=== PATIENT | male | born 1965 | race Caucasian/White ===

== ENCOUNTER 2025-02-11 10:53 | Outpatient (AMB) | payer OTHER, SELFPAY ==
--- NOTE | 2025-02-11 10:58 | MHC.PC.OV ---
Vital Signs 02/11/25 11:06 02/11/25 15:54 Height 5 ft 10.47 in Weight 212 lb 8 oz BMI 30.1 BP 149/67 H 132/76 Blood Pressure Location Rt brachial Position Sitting Respiration 16 Pulse 73 Pulse Source Pulse Oximeter Temp 97.2 F Temp Source Temporal Artery Scan Pulse Oximetry (%) 98 Oxygen Delivery Method Room Air Intake Visit Reasons: Establish Care Metal Burnisher Required: No Accompanied by: Self / Same As Patient Allergies No Known Allergies Allergy (Verified 02/11/25 15:55) Medication List - Last Reconciled 02/11/25 by Vianey Larson PA-C Bifidobacterium combo no.9 (Adult 50 Plus Probiotic Kimberley) cells PO docusate sodium (Colace) 100 mg PO BID 90 days fexofenadine-pseudoephedrine 60-120 mg ER (Yee-D 12 Hour) 1 tab PO Q12H PRN hydrocortisone 2.5% 1 appl topical BID-TID PRN peg 3350-electrolytes 236-22.74-6.74 -5.86 gram (Golytely) 240 mL PO Q10M polyethylene glycol 3350 (Miralax) 17 grams PO BID Tobacco use date assessed: 02/11/25 Dental Screening Dental Screen Date: 02/11/25 Did you have a dental visit in the last 12 months?: Yes Did you have a dental problem in the last 6 months where you did not have access to dental care?: No Was dental information given to patient?: Patient has dentist HPI Establish Care HPI Details The patient is a 60-year-old male presenting for an annual physical exam in addition with gastrointestinal symptoms and chronic condition management. The patient reports a history of chronic appendicitis diagnosed after a CAT scan last year, which led to an appendectomy on . Post-surgery, symptoms temporarily improved but returned by June, characterized by abdominal discomfort and constipation. The patient describes persistent gastrointestinal symptoms, including bloating, abdominal discomfort, and constipation since returning from a cruise three years ago. He experiences pressure on the right side, with symptoms exacerbated by certain foods, and reports straining during bowel movements. A colonoscopy performed last year was normal, except for internal hemorrhoids, and stool tests for parasites were negative. The patient has been advised to undergo further testing, including a SIBO test, but insurance issues have delayed additional imaging like a CAT scan. The patient also reports tinnitus and eczema, with a history of benign paroxysmal positional vertigo (BPPV) diagnosed after a dizzy spell. He experiences postnasal drip, leading to phlegm production, and has been managing these symptoms with bdkg-yav-gthqxkb treatments. Social History - The patient sees a chief learning officer for dietary management. - The patient returned from a cruise three years ago, which coincided with the onset of gastrointestinal symptoms. [facility] Medical History (Updated 02/11/25 @ 16:02 by Vianey Larson PA-C) Postnasal drip BPPV (benign paroxysmal positional vertigo) Eczema Tinnitus IBS (irritable bowel syndrome) Diffuse abdominal pain Annual physical exam Constipation Right sided abdominal pain History of appendicitis Surgical History History of appendectomy Family History Father Congestive heart failure Diabetes Mother History of kidney cancer Social History Housing: House Patient Tobacco Use Status: Never used Tobacco e-Cigarette/Vaping Use: Never Used service: No Current occupational status: employed Cognitive needs: No Hearing needs: No Vision needs: Yes (reading glasses) Questionnaire PHQ-9 Over the last 2 weeks, how often have you been bothered by any of the following problems? 1. Little interest or pleasure in doing things: not at all 2. Feeling down, depressed, or hopeless: not at all 3. Trouble falling or staying asleep, or sleeping too much: not at all 4. Feeling tired or having little energy: not at all 5. Poor appetite or overeating: not at all 6. Feeling bad about yourself - or that you are a failure or have let yourself or your family down: not at all 7. Trouble concentrating on things, such as reading the newspaper or watching television: not at all 8. Moving or speaking so slowly that other people could have noticed. Or the opposite - being so fidgety or restless that you have been moving around a lot more than usual: not at all 9. Thoughts that you would be better off or of hurting yourself in some way: not at all Total score: 0 Depression Screening Interpretation: Negative Depression Screening Done: Yes 45787 - PHQ-9 Billing: Yes Source: Developed by Drs. Chriss Woodard, Nitin Dsouza and colleagues, with an educational colten from [employer]. Thrive Questionnaire Date Thrive assessed: 02/11/25 I am a: Patient What is your living situation today?: I have a steady place to live Within the past 12 months, did the food you bought not last and you didn't have the money to get more?: Never true Within the past 12 months, did you worry whether your food would run out before you got money to buy more?: Never true Do you have trouble paying for medicines?: No Do you have trouble getting transportation to medical appointments?: No Do you have trouble paying your heating and electricity bill?: No Do you have trouble taking care of your child, family member or friend?: No Do you have trouble with day-to-day activities such as bathing, preparing meals, shopping, managing finances, etc.?: No Are you currently unemployed and looking for a job?: No Are you interested in more education?: No Please select the resources that you would like help with: None THRIVE Score: 0 AUDIT C Alcohol Use Questionnaire (AUDIT-C) 1. How often do you have a drink containing alcohol?: 2-3 times a week 2. How many drinks containing alcohol do you have on a typical day when you are drinking?: 1 or 2 Total Score: 3 Score Reviewed/Action Taken: No KATIUSKA-7 AMB Questionnaire KATIUSKA-7 Feeling nervous, anxious, or on edge: 0 = Not at all Not being able to stop or control worryin = Not at all Worrying too much about different things: 0 = Not at all Trouble relaxin = Not at all Being so restless that it is hard to sit still: 0 = Not at all Becoming easily annoyed or irritable: 0 = Not at all Feeling afraid as if something awful might happen: 0 = Not at all Total KATIUSKA-7 score (0-4 normal; 5-9 mild; 10-14 moderate; 15-21 severe): 0 Source: Developed by Yesy Hernández Kurt Kroenke and colleagues, with an educational colten from [employer]. KATIUSKA-7 Assessment Billing KATIUSKA-7 Assessment Tool: KATIUSKA-7 Assessment 08032 Review of Systems Const Details: - Gastrointestinal: Reports bloating, abdominal discomfort, constipation, and straining during bowel movements. Denies diarrhea. - Neurological: Reports tinnitus and dizziness. Denies headaches. - Dermatological: Reports eczema. - Respiratory: Reports postnasal drip and phlegm production. All systems reviewed & are unremarkable except as noted in HPI and below Physical exam (Primary Care) Vital Signs: Last Vital Signs Temp 97.2 F 02/11/25 11:06 Pulse 73 02/11/25 11:06 Resp 16 02/11/25 11:06 BP 149/67 H 02/11/25 11:06 Pulse Ox 98 02/11/25 11:06 Oxygen Delivery Method Room Air 02/11/25 11:06 Care Plan Goal for BP management: <140/90 at Goal BMI result Body Mass Index 30.1 BMI Assessment/Plan discussion: High BMI High, discussed plan: lifestyle, weight reduction, dietary, physical activity, alcohol moderation and other Tobacco/Smoking Status: Tobacco use Status Tobacco use date assessed 02/11/25 02/11/25 11:06 Patient Tobacco Use Status Never used Tobacco 02/11/25 11:06 e-Cigarette/Vaping Use Never Used 02/11/25 11:06 PHQ-9: PHQ-9 Score PHQ-9: Total score 0 02/11/25 11:06 Depression Screening Interpretation: Negative Thrive Assessment: Date of Thrive Assessment Date Thrive assessed 02/11/25 02/11/25 11:06 Const Other: Appearance: Alert. Oriented X3. No acute distress. Head: Normal external exam. Normocephalic. Atraumatic. Eyes: Pupils are equal, round, and reactive to light. Extraocular movements intact. Conjunctiva and sclera normal. Eyelids normal. Ears: External auditory canal normal. Tympanic membranes normal. Reports tinnitus and eczema in ears. Throat: Pharynx normal. Uvula midline. Moist mucous membranes. Neck: Normal inspection. Neck supple. Full range of motion. No adenopathy. Thyroid Normal. No meningeal signs. No neck mass noted. Cardiovascular: Normal heart rate and rhythm. Heart sound normal. No murmurs noted. Pulses normal throughout. Respiratory: No respiratory distress. Painless inspiration. Breath sounds normal. No wheezes/rales/rhonchi noted. Chest nontender. No accessory muscle usage noted or decreased air movement noted. Abdomen: Soft. Bowel sounds normal in all 4 quadrants. No distention noted. No organomegaly noted. Reports diffuse abdominal pain, primarily on the right side, with some discomfort on the left side. No visible injury noted. Back: No costovertebral angle tenderness. Full range of motion noted. Skin: Skin warm and dry. Normal skin color. Normal skin turgor. No rashes/lesions/lacerations noted. Extremities: No lower extremity edema. Extremities exhibit normal range of motion. Extremities nontender. Neuro: Oriented X 3. No motor deficit. No sensory deficit. Reflexes normal. Reports dizziness and vertigo episodes in the past. Results Reviewed Results Reviewed: - Labs: Stool tests negative for parasites. - Imaging: Colonoscopy normal except for internal hemorrhoids. Coding Level of Care Code New Pt Level 4 (25766) New Pt Prev Care 40-64y(73441) Diagnoses Annual physical exam Z00.00 Diffuse abdominal pain R10.84 IBS (irritable bowel syndrome) K58.9 Tinnitus H93.19 Eczema L30.9 BPPV (benign paroxysmal positional vertigo) H81.10 Postnasal drip R09.82 Constipation K59.00 Additional Codes PHQ-9 - 46982 - PHQ-9 Billing: Yes ([id number]) KATIUSKA-7 Assessment Billing - KATIUSKA-7 Assessment Tool: KATIUSKA-7 Assessment 02987 ([id number]) Time Spent (min) 60 Assessment & Plan Assessment & Plan (1) Annual physical exam: Code(s): Z00.00 - Encounter for general adult medical examination without abnormal findings Category: Medical (2) Diffuse abdominal pain: Code(s): R10.84 - Generalized abdominal pain Category: Medical Plan: Abdomen is soft although patient reports diffuse chronic tenderness therefore will order labs, GI panel, stool test, H pylori testing, abdominal ultrasound if abdominal ultrasound nonconclusive will order CT scan abdomen pelvis with IV contrast and p.o. contrast. Will also refer to GI. Condition is chronic and stable will continue to monitor. (3) IBS (irritable bowel syndrome): Code(s): K58.9 - Irritable bowel syndrome, unspecified Category: Medical Plan: The patient reports persistent gastrointestinal symptoms consistent with IBS, including bloating and constipation, exacerbated by certain foods. A comprehensive workup including stool tests and a colonoscopy has been performed, with further testing for SIBO and imaging pending due to insurance constraints. (4) Tinnitus: Code(s): H93.19 - Tinnitus, unspecified ear Category: Medical Plan: The patient reports tinnitus, which may be related to postnasal drip and fluid in the ears. Yee has been suggested to manage symptoms. (5) Eczema: Code(s): L30.9 - Dermatitis, unspecified Category: Medical Plan: The patient has eczema, particularly in the ears, managed with hydrocortisone ointment. (6) BPPV (benign paroxysmal positional vertigo): Code(s): H81.10 - Benign paroxysmal vertigo, unspecified ear Category: Medical Plan: The patient has a history of BPPV, which was diagnosed following a dizzy spell. (7) Postnasal drip: Code(s): R09.82 - Postnasal drip Category: Medical Plan: The patient experiences postnasal drip, leading to phlegm production, and has been advised to try Yee for symptom management. (8) Constipation: Code(s): K59.00 - Constipation, unspecified Category: Medical Plan: The patient experiences chronic constipation, managed with dietary adjustments and idfh-xhy-lxnxnti treatments. A prescription for Colace and MiraLAX has been provided to alleviate symptoms. Plan Plan Patient was informed and verbally consented to the use of an ambient scribe for clinic note documentation during this visit. 1. Chronic Appendicitis The patient underwent an appendectomy for chronic appendicitis, but symptoms have returned, suggesting further evaluation is needed. 2. Irritable Bowel Syndrome (Ibs) The patient reports persistent gastrointestinal symptoms consistent with IBS, including bloating and constipation, exacerbated by certain foods. A comprehensive workup including stool tests and a colonoscopy has been performed, with further testing for SIBO and imaging pending due to insurance constraints. 3. Constipation The patient experiences chronic constipation, managed with dietary adjustments and uigr-jtm-fyjqtgq treatments. A prescription for Colace and MiraLAX has been provided to alleviate symptoms. 4. Tinnitus The patient reports tinnitus, which may be related to postnasal drip and fluid in the ears. Yee has been suggested to manage symptoms. 5. Eczema The patient has eczema, particularly in the ears, managed with hydrocortisone ointment. 6. Benign Paroxysmal Positional Vertigo (Bppv) The patient has a history of BPPV, which was diagnosed following a dizzy spell. 7. Postnasal Drip The patient experiences postnasal drip, leading to phlegm production, and has been advised to try Yee for symptom management. During the visit, I discussed with the patient the management of his gastrointestinal symptoms, including the use of Colace and MiraLAX for constipation and the potential need for further imaging if symptoms persist. We also talked about the use of Yee for managing postnasal drip and tinnitus, and the application of hydrocortisone for eczema. I advised the patient to monitor his symptoms and follow up with a rawhide bone roller for further evaluation. Orders: Orders H pylori Ag Stool Today R10.9 - Unspecified abdominal pain Chymotrypsin, Stool Today R10.9 - Unspecified abdominal pain Transglutaminase Ab IgG 1 Day R14.0 - Abdominal distension (gaseous) Transglutaminase IgA 1 Day R14.0 - Abdominal distension (gaseous) Complete Blood Count Auto Diff Today Z00.00 - Encounter for general adult medical examination without abnormal findings Magnesium Today Z00.00 - Encounter for general adult medical examination without abnormal findings PSA,Total (Free>4and<10) Today Z00.00 - Encounter for general adult medical examination without abnormal findings TSH reflex Free T4 Today Z00.00 - Encounter for general adult medical examination without abnormal findings UA CC w/rflx Micro + Cult Today Z00.00 - Encounter for general adult medical examination without abnormal findings Amylase Today K59.00 - Constipation, unspecified, R10.9 - Unspecified abdominal pain Leukocytes Stool Qualitative Today R10.9 - Unspecified abdominal pain Giardia Ag Stool EIA Today R10.9 - Unspecified abdominal pain Cyclospora & Isospora Stool Today R10.9 - Unspecified abdominal pain pH stool Today R10.9 - Unspecified abdominal pain Celiac Disease Panel Today R10.9 - Unspecified abdominal pain Comprehensive [place]. Panel Fast Today Z00.00 - Encounter for general adult medical examination without abnormal findings GI Panel Today R19.8 - Other specified symptoms and signs involving the digestive system and abdomen Hemoglobin A1c Today Z00.00 - Encounter for general adult medical examination without abnormal findings Lipid Panel Today Z00.00 - Encounter for general adult medical examination without abnormal findings Liver Panel Today Z00.00 - Encounter for general adult medical examination without abnormal findings C Reactive Protein Today Z00.00 - Encounter for general adult medical examination without abnormal findings CDiff Gene PCR Today R10.9 - Unspecified abdominal pain Erythrocyte Sedimentation Rate Today Z00.00 - Encounter for general adult medical examination without abnormal findings Vitamin B12 and Folate Today Z00.00 - Encounter for general adult medical examination without abnormal findings Vitamin D 25-OH Total Today Z00.00 - Encounter for general adult medical examination without abnormal findings US abdomen complete Today K59.00 - Constipation, unspecified, R10.84 - Generalized abdominal pain Ova and Parasite Today K59.00 - Constipation, unspecified, R10.9 - Unspecified abdominal pain Referrals Gastroenterology Referral K59.00 - Constipation, unspecified, R10.9 - Unspecified abdominal pain Medications: New polyethylene glycol 3350 (Miralax) 17 grams PO BID 850 grams 3RF fexofenadine-pseudoephedrine 60-120 mg ER (Yee-D 12 Hour) 1 tab PO Q12H PRN 90 tabs 3RF allergy symptoms peg 3350-electrolytes 236-22.74-6.74 -5.86 gram (Golytely) until fecal effluent is clear 240 mL PO Q10M 4,000 mL 0RF docusate sodium (Colace) 100 mg PO BID 180 caps 3RF 90 days hydrocortisone 2.5% 1 appl topical BID-TID PRN 454 grams 1RF itching Patient Instructions: - Take Colace and MiraLAX as prescribed to manage constipation. - Use Yee for postnasal drip and tinnitus management. - Apply hydrocortisone ointment to affected areas for eczema. - Schedule a follow-up appointment with a rawhide bone roller within a month. - Monitor symptoms and report any significant changes.
[2025-02-11 11:06] VITALS: BP 149/67; PULSE 73; RESP 16; TEMP 36.2; O2SAT 98; BMI 30.1
[2025-02-11 15:54] VITALS: BP 132/76
== END 2025-02-11 12:00 | disposition home or self-care (01) ==
PROVIDERS: PCP Internal Medicine; Visit Provider Physician Assistant Medical
DX: Z00.00 Encounter for general adult medical examination without abnormal findings (principal); R10.84 Generalized abdominal pain; K58.9 Irritable bowel syndrome, unspecified; H93.13 Tinnitus, bilateral; R09.82 Postnasal drip; H81.13 Benign paroxysmal vertigo, bilateral; L30.9 Dermatitis, unspecified; K59.00 Constipation, unspecified

== ENCOUNTER → 2025-02-11 10:53 | Outpatient (BNVA) | payer OTHER, SELFPAY | PROVIDERS: PCP Internal Medicine; Visit Provider Physician Assistant Medical | DX: Z00.00 Encounter for general adult medical examination without abnormal findings (principal); R10.84 Generalized abdominal pain; K58.1 Irritable bowel syndrome with constipation; H93.19 Tinnitus, unspecified ear; L30.9 Dermatitis, unspecified; H81.10 Benign paroxysmal vertigo, unspecified ear; R09.82 Postnasal drip; Z90.49 Acquired absence of other specified parts of digestive tract; Z13.31 Encounter for screening for depression | CPT/HCPCS: 96127 ==

== ENCOUNTER 2025-02-16 06:26 | Outpatient (REF) | payer OTHER, SELFPAY ==
--- OUTSIDE RECORDS SUMMARY | 2025-01-24 13:07 | XMS_ITS ---
Author Organization [facility] Address [address] [place], [place] [phone] Care Team Providers Care Mortgage Protection Sales Name Role Phone HAM WALTER Primary Care Provider [phone] REASON FOR VISIT RE:RE:RE:Help Encounters Encounter Location Date Provider Diagnosis [facility] [address] [place] [address] 01/24/2025 HAM WALTER PLAN OF TREATMENT No Information
--- OUTSIDE RECORDS SUMMARY | 2025-01-24 15:46 | XMS_ITS ---
Author Organization [facility] Address [address] [place], [place] [address] Care Team Providers Care Home Health Manager Name Role Phone HAM WALTER Primary Care Provider [phone] REASON FOR VISIT RE:RE:RE:Help Encounters Encounter Location Date Provider Diagnosis [facility] [address] [place] [address] 01/24/2025 HAM WALTER PLAN OF TREATMENT No Information
--- OUTSIDE RECORDS SUMMARY | 2025-02-09 10:13 | XMS_ITS ---
Author Organization [facility] Address [address] [place], [place] [phone] Care Team Providers Care Rod Straightener Name Role Phone HAM WALTER Primary Care Provider REASON FOR VISIT [place] [facility] Encounters Encounter Location Date Provider Diagnosis [facility] [address] [place] [address] 02/09/2025 HAM WALTER PLAN OF TREATMENT No Information
--- OUTSIDE RECORDS SUMMARY | 2025-02-14 05:00 | XMS_ITS ---
Author Organization [facility] Address [address] [place], [place] [phone] Care Team Providers Care Data Processing Equipment Repairer Name Role Phone HAM WALTER Primary Care Provider REASON FOR VISIT new pcp Encounters Encounter Location Date Provider Diagnosis [facility] [address] [place] [address] 02/14/2025 HAM WALTER PLAN OF TREATMENT No Information
--- OUTSIDE RECORDS SUMMARY | 2025-02-15 10:15 | XMS_ITS ---
Author Organization [facility] Address [address] [place], [place] [phone] Care Team Providers Care Specialties Operator Name Role Phone HAM WALTER Primary Care Provider REASON FOR VISIT tomer cpx Encounters Encounter Location Date Provider Diagnosis [facility] [address] [place] [address] 02/15/2025 HAM WALTER PLAN OF TREATMENT No Information
--- OUTSIDE RECORDS SUMMARY | 2025-02-16 06:33 | XMS_ITS | Patient Health Record ---
Author Organization [facility] Address [address], [place] [address] Care Team Providers Care Couture Alterations Dressmaker Name Role Phone HAM WALTER Primary Care Provider [phone] BRYCE JOAQUIN Unavailable [phone] KALPESH FAUST Unavailable [phone] ALLERGIES Allergen (clinical drug ingredient) Drug/Non Drug Allergy documented on EMR Reaction Allergy Type Onset Date Status fluticasone Fluticasone felt funny Drug Allergy Active REASON FOR REFERRAL Reason right heel pain with history spur. Increased pain eval and treat Diagnosis 1 Pain of right heel ( M79.671) Referral [facility] Referring Provider First Name KALPESH Referring Provider Last Name GOVIND Referring Provider Speciality Internal M edicine Referred Provider SHANNA CRUZ Referred Provider Specialty IMPROVEMENT ENGINEER General Notes Franny ASIF 02/26/2024 04:08:16 PM > fwd to YEFRI Garay Lisa K Referrals 03/17/2024 12:55:47 PM > medical referral and notes have been faxed to Dr. Cruz at [phone], Tanisha ASIF Referrals 03/24/2024 12:04:53 PM > called office, spoke with Luz Elena, no referral on file, medical referral and notes have been refaxed to [phone] Natalie G [place] 10/25/2024 02:24:05 PM > Called Dr. Cruz office pt cancelled new pt appt that was scheduled for 06/2024 fwd to GOVIND Palomares PATRICK 10/26/2024 08:09:37 AM > noted Referral Priority Routine Reason please call and cons ult dr jarrell thompson for dx rlq pain for 2 years with abnormal appendix on ct Referral Organization [facility] As gayle Referring Provider First Name HAM Referring Provider Last Name WALTER Referring Provider Speciality Internal edicine Referred Provider JARRELL THOMPSON III Referred Provider Specialty Surgery General Notes Ivana ASIF MA 1 06/22/2023 05:25:47 PM >please call and consult dr jarrell thompson for dx rlq pain for 2 years with abnormal appendix on ct, Ivana ASIF MA 04/21/2024 05:28:26 PM >referral faxed with recent note and ct scan report, Ivana ASIF MA 04/26/2024 09:58:47 AM > pt is scheduled for 04/26, Tanisha ASIF Referrals 06/30/2024 01:43:27 PM > back dated referral request received from Lyndsay for 04/26/24 referral was addressed before the insurance referral could be processed, back dated referral approved and faxed to Lyndsay at [phone] Referral Priority Routine Reason Z03.89 Referral Organization [facility] Referring Provider First Name HAM Referring Provider Last Name WALTER Referring Provider Speciality Internal edicine Referred Provider ALVARO MARIN Referred Provider Specialty Ophthalmolog y General Notes Tanisha ASIF Referrals 08/25/2024 03:37:46 PM > referral request received from [facility], referral approved and faxed to [phone] Referral Priority Routine Referral Appointment Date 08/25/2024 Reason please refer to [facility] general surgery for post appendectomy RLQ pain Referral Organization [facility] As [employer] Referring Provider First Name HAM Referring Provider Last Name WALTER Referring Provider Speciality Internal edicine General Notes Ivana ASIF MA 12:05:58 PM > please refer to [facility] general surgery for post appendectomy RLQ pain, Referral Priority Routine MEDICATIONS Medication SIG (Take, Route, Fr equency, Duration) Notes Start Date End Date Status Probiotic - 1 tablet Orally once a day Active Multivitamin - 1 tablet Orally Once a day Active IMMUNIZATIONS Vaccine Route Administration Date Status Comme nts Tdap (Adacel)11-64,State Supplied IM Intramuscular 03/13/2010 Administered Pfizer COVID-19,mRNA, LNP-S, PF, 30mcg/0.3mL dose Unknown 08/02/2020 Administered Pfizer COVID-19,mRNA, LNP-S, PF, 30mcg/0.3mL dose Unknown 08/26/2020 Administered Moderna COVID-19 mRNA LNP-S PF IM Intramuscular 05/06/2021 Administered SOCIAL HISTORY Tobacco Use: Social History Observation Description Date Details (start date - stop date) Former Smoker NA - NA Sex Assigned At : Social History Observation Description Sex Assigned At Unknown Smoking Question Answer Notes Are you a: former smoker How long has it been since you last smoked? > 10 years Section Notes: Former smoker. Former smoker. Former smoker. Former smoker quit age 27, s moked age [age] socially Former smoker. Former smoker. Former smoker. Former smoker quit age 27, s moked age 21-25 socially Former smoker. Former smoker quit age 27, s moked age 23-25 socially PROBLEMS Problem Type ICD Code Onset Dates Problem Status W/U Status Risk SNOMED Code Notes Problem Snoring (R06.83) Active confirmed 75930 001 Problem ERIKA (obstructive sleep apnea) (G47.33) Active confirmed 66956197 Problem Tinnitus of both ears (H93.13) Active confirmed 7762280902154 Problem Tinnitus of right ear (H93.11) Active confirmed 68928050 Problem Cervical disc disease (M50.90) Active confirmed 543116741 Problem 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) Active confirmed 11387436 Problem Hypogonadism in male (E29.1) Active confirmed 44182010 Problem Throat congestion (R68.89) Active confirmed 600668455 Problem Varicocele (I86.1) Active confirmed 510 63957 Problem New daily persistent headache (G44.52) Active confirmed 372566059 Problem Irritable bowel syndrome with both constipation and diarrhea (K58.2) Active confirmed 85100435 VITAL SIGNS Blood pressure diastolic 76 mm Hg 12/10/2024 Height 71 in 12/10/2024 Blood pressure systolic 122 mm Hg 12/10/2024 Weight 204 lbs 12/10/2024 BMI 28.45 kg/m2 12/10/2024 Encounters Encounter Location Date Provider Diagnosis [address] [address] 02/23/[address] [address] 02/26/2024 KALPESHGREGORY MILLARDSON Abdominal pain, unspecified abdominal location R10.9 and Pain of right heel M79.[address] [address] 02/27/2024 HAM WALTER Abdominal pain, unspecified abdominal location R10.[address] [address] 02/27/[address] [address] 03/28/2024 HAM [facility] [address] [address] 03/29/2024 HAM WALTER RLQ abdominal pain R10.[address] [address] 03/31/2024 HAM [facility] [address] [address] 04/16/[address] [address] 04/19/2024 HAM [facility] [address] [address] 04/21/2024 HAM [facility] [address] [place] [address] 04/29/2024 HAM [facility] [address] [place] [address] 05/04/2024 KALPESH MILLARDSON [address] [address] 05/07/2024 [facility] discharge follow-up Z09 ; Appendicitis, unspecified appendicitis type K37 and Pruritic rash L28.[address] [facility] [address] [address] 05/07/2024 HAM [facility] [address] [address] 05/07/2024 KALPESH FAUST [facility] [address] [place] [address] 12/10/2024 HAM WALTER [facility] [address] [place] [address] 12/10/2024 HAM WALTER [facility] abdominal pain R10.31 [facility] [address] [place] [address] 12/10/2024 HAM WALTER [facility] [address] [place] [address] 12/10/2024 HAM WALTER [facility] [address] [place] [address] 12/13/2024 HAM WALTER [facility] [address] [place] [address], [place] [address] 01/14/2025 HAM WALTER [facility] [address] [place] [address], [place] [address] 01/18/2025 HAM WALTER [facility] [address] [place] [address] 01/20/2025 HAM WALTER [facility] [address] [place] [address], [place] [address] 01/20/2025 HAM WALTER [facility] [address] [place] [address] 01/20/2025 HAM WALTER [facility] [address] [place] [address], [place] [address] 01/21/2025 HAM WALTER [facility] [address] [place] [address] 01/24/2025 HAM WALTER [facility] [address] [place] [address] 01/24/2025 HAM WALTER [facility] [address] [place] [address] 01/24/2025 HAM WALTER [facility] [address] [place] [address] 02/09/2025 HAM WALTER [facility] [address] [place] [address] 02/14/2025 HAM WALTER [facility] [address] [place] [address] 02/15/2025 HAM WALTER ASSESSMENTS Encounter Date Diagnosis Assessment Notes Treatment Notes Treatment Clinical Notes Section Notes 02/27/2024 Abdominal pain, unspecified abdominal location (ICD-10 - R10.9) 02/26/2024 Pain of right heel (ICD-10 - M79.671) Referral to podiatry placed. Patient advised to try different shoe inserts with more padding. Make sure to wear well-fitted, supportive shoes. Ice and heat to area as discussed. Follow-up if continuing issues. 02/26/2024 Abdominal pain, unspecified abdominal location (ICD-10 - R10.9) Labs ordered. CT abdomen and pelvis ordered. Plenty of liquids. Light diet as tolerated. Further treatment and/or evaluation will be based on test results. Follow-up with Dr. Hill if continuing issues. Follow-up with face painter as scheduled. 03/29/2024 RLQ abdominal pain (ICD-10 - R10.31) 05/07/2024 Hospital discharge follow-up (ICD-10 - Z09) Hospital records and data reviewed. Medication reconciliation was completed with facility discharge summary. 05/07/2024 Appendicitis, unspecified appendicitis type (ICD-10 - K37) doing well, incisions healing well; small hematoma present under umbilical incision; advised may use some local heat; advised to call surgeon if fever, inc pain or redness develops; avoid heavy lifting until cleared by surgeon; call to schedule appt with Dr Thompson, diet as tolerated. 12/10/2024 RLQ abdominal pain (ICD-10 - R10.31) reviewed prior eval..will check abs and ct..trial activated charcoal 05/07/2024 Pruritic rash (ICD-10 - L28.2) eucerin and hydrotcortisone as needed to abdomen; call if worsening 05/07/2024 Other I am seeing the patient under the supervision of the co-signing physician. The physician was available for consultation at the time of the office visit. PLAN OF TREATMENT Pending Test Test Name Order Date CT Abdomen & Pelvis with Oral and IV con trast 12/10/2024 CT Abdomen & Pelvis with Oral and IV con trast 02/26/2024 Lyme Ab(BRL/QUEST) 09/10/2016 CBC W/OUT AUTOMATED DIFF 06/22/2021 URINALYSIS WITH REFLEX MICROSCOPIC 06/22 SHBG(Sex Hormone Binding Globulin) 10/02 URINE CULTURE 05/02/2022 Future Test Test Name Order Date CBC W/ AUTOMATED DIFF 05/07/2022 COMP. METABOLIC 05/07/2022 GIARDIA LAMBLIA ANTIGEN, EIA(Stool) 07/2022 Stool for O and P x 3 samples 05/07/2022 CLOSTRIDIUM DIFFICILE TOXIN/GDH W/REFL T O PCR (60176) 05/07/2022 Insurance Providers Payer Name Payer Address Payer Phone Subscriber Number Group Number Insured Name Patient Relationship to Insured Coverage Start Date Coverage End Date [place] [employer] [address] [place] [phone] [id number] OR[place]O RODRIGUEZ Self - patient is the insured 4 MEDICAL (GENERAL) HISTORY Medical History History ICD Code OA R fingers Elevated fasting glucose of 102 03/14 Sleep Study 04/18: ERIKA Colon05/16/17nl ..2022..NL...due 2032 IBS Surgical History Surgery Date(Month/Year) L Inguinal Hernia - Dr Ritter in [place]
[2025-02-16 10:15] LABS: MANUAL DIFF FLAG NO
[2025-02-16 10:23] LABS: Appearance Urine Clear; Glucose Urine UA Negative (Negative); Hematocrit 43.0 % (42.0-52.0); Hemoglobin 14.1 g/dl (14.0-18.0); Imm Gran Abs Auto 0.01 X10*3/uL (0.00-0.03); Imm Gran Pct Auto 0.2 % (0.0-0.4); Lymphocytes Absolute Auto 1.3 X10*3/uL (1.2-4.9); Mean Corpuscular HGB Conc 32.8 g/dl (31.0-36.0); Mean Corpuscular Hemoglobin 29.4 pg (27.0-33.0); Mean Corpuscular Volume 89.6 fL (80.0-98.0); NRBC Abs Auto 0.000 X10*3/uL (0.0-0.012); NRBC Pct Auto 0.0 /100WBC (0.0-0.2); PH 5.5 (5.0-9.0); Platelet Count 224 X10*3/uL (160-400); Red Blood Count 4.80 X10*6/uL (4.60-5.80); Specific Gravity - Urine 1.015 (1.005-1.025); UMIC TRIGGER UACC YES; White Blood Count 6.2 X10*3/uL (4.8-10.8)
[2025-02-16 10:49] LABS: Alanine Aminotransferase 28 U/L (0-40); Albumin Level 4.2 g/dL (3.5-5.0); Alkaline Phosphatase 46 U/L (39-117); Amylase 77 U/L (28-100); Anion Gap 10 (12-20); Aspartate Amino Transferase 28 U/L (5-37); Blood Urea Nitrogen 17 mg/dL (9-16); Calcium 9.1 mg/dL (8.4-10.2); Carbon Dioxide 29 mmol/L (22-29); Chloride 107 mmol/L (96-108); Cholesterol 173 mg/dL (<200); Estimated Glomerular Filt Rate > 60; HDL Cholesterol 43 mg/dL (>40); Magnesium 2.1 mg/dL (1.6-2.6); Potassium 4.5 mmol/L (3.3-5.1); Sodium 141 mmol/L (135-145); Total Protein 7.0 g/dL (6.5-8.0); Triglycerides 61 mg/dL (<150)
[2025-02-16 10:52] LABS: PSA,Total (Free>4and<10) 1.51 ng/mL (0.00-4.00)
[2025-02-16 11:05] LABS: Folate 11.7 ng/mL (> or = 4.0); Vitamin B12 523 pg/mL (200-900)
[2025-02-17 14:59] LABS: Immunoglobulin A 235 mg/dL (47-310); Transglutaminase Ab IgG <1.0 U/mL
== END 2025-02-16 06:27 | disposition home or self-care (01) ==
LOC: HO.HMGCLDS 06:26
PROVIDERS: PCP Physician Assistant Medical; Visit Provider Physician Assistant Medical
DX: Z00.00 Encounter for general adult medical examination without abnormal findings (principal); Z13.1 Encounter for screening for diabetes mellitus; Z13.6 Encounter for screening for cardiovascular disorders; Z12.5 Encounter for screening for malignant neoplasm of prostate; K59.00 Constipation, unspecified; R10.9 Unspecified abdominal pain; R14.0 Abdominal distension (gaseous)
CPT/HCPCS: 36415; 80053; 80061; 80076; 81001; 82150; 82248; 82306; 82607; 82746; 82784; 83036; 83735; 84153; 84443; 85025; 85652; 86140; 86364

== ENCOUNTER 2025-02-23 05:53 | Outpatient (REF) | payer OTHER, SELFPAY ==
--- OUTSIDE RECORDS SUMMARY | 2025-01-20 13:25 | XMS_ITS ---
Author Organization [facility] Address [address] [place], [place] [phone] Care Team Providers Care Feed Crusher Operator Name Role Phone HAM WALTER Primary Care Provider REASON FOR VISIT RE:Help Encounters Encounter Location Date Provider Diagnosis [facility] [address] [place] [address] 01/20/2025 HAM WALTER PLAN OF TREATMENT No Information
--- OUTSIDE RECORDS SUMMARY | 2025-01-20 15:43 | XMS_ITS ---
Author Organization [facility] Address [address] [place], [place] [address] Care Team Providers Care Tearer Press Clipping Name Role Phone HAM WALTER Primary Care Provider [phone] REASON FOR VISIT RE:RE:Help Encounters Encounter Location Date Provider Diagnosis [facility] [address] [place] [address] 01/20/2025 HAM WALTER PLAN OF TREATMENT No Information
--- OUTSIDE RECORDS SUMMARY | 2025-01-21 05:04 | XMS_ITS ---
Author Organization [facility] Address [address] [place], [place] [phone] Care Team Providers Care Pigment Furnace Tender Name Role Phone HAM WALTER Primary Care Provider [phone] REASON FOR VISIT RE:RE:RE:Help Encounters Encounter Location Date Provider Diagnosis [facility] [address] [place] [address] 01/21/2025 HAM WALTER PLAN OF TREATMENT No Information
--- OUTSIDE RECORDS SUMMARY | 2025-01-24 07:28 | XMS_ITS ---
Author Organization [facility] Address [address] [place], [place] [phone] Care Team Providers Care Road Consultant Name Role Phone HAM WALTER Primary Care Provider REASON FOR VISIT 2 RE:RE:RE:Help Encounters Encounter Location Date Provider Diagnosis [facility] [address] [place] [address] 01/24/2025 HAM WALTER PLAN OF TREATMENT No Information
--- OUTSIDE RECORDS SUMMARY | 2025-01-24 13:07 | XMS_ITS ---
Author Organization [facility] Address [address] [place], [place] [id number] Care Team Providers Care Time Broker Name Role Phone HAM WALTER Primary Care Provider [phone] REASON FOR VISIT RE:RE:RE:Help Encounters Encounter Location Date Provider Diagnosis [facility] [address] [place] [address] 01/24/2025 HAM WALTER PLAN OF TREATMENT No Information
--- OUTSIDE RECORDS SUMMARY | 2025-01-24 15:46 | XMS_ITS ---
Author Organization [facility] Address [address] [place], [place] [phone] Care Team Providers Care Supervisor Bit And Shank Department Name Role Phone HAM WALTER Primary Care Provider REASON FOR VISIT RE:RE:RE:Help Encounters Encounter Location Date Provider Diagnosis [facility] [address] [place] [address] 01/24/2025 HAM WALTER PLAN OF TREATMENT No Information
--- OUTSIDE RECORDS SUMMARY | 2025-02-09 10:13 | XMS_ITS ---
Author Organization [facility] Address [address] [place], [place] [phone] Care Team Providers Care Economics Faculty Member Name Role Phone HAM WALTER Primary Care Provider [phone] REASON FOR VISIT [place] Encounters Encounter Location Date Provider Diagnosis [facility] [address] [place] [address] 02/09/2025 HAM WALTER PLAN OF TREATMENT No Information
--- OUTSIDE RECORDS SUMMARY | 2025-02-14 05:00 | XMS_ITS ---
Author Organization [facility] Address [address] [place], [place] [phone] Care Team Providers Care Budget Director Name Role Phone HAM WALTER Primary Care Provider [phone] REASON FOR VISIT new pcp Encounters Encounter Location Date Provider Diagnosis [facility] [address] [place] [address] 02/14/2025 HAM WALTER PLAN OF TREATMENT No Information
--- OUTSIDE RECORDS SUMMARY | 2025-02-15 10:15 | XMS_ITS ---
Author Organization [facility] Address [address], [place] [id number] Care Team Providers Care Family Life Educator Name Role Phone HAM WALTER Primary Care Provider [phone] REASON FOR VISIT tomer cpx Encounters Encounter Location Date Provider Diagnosis [facility] [address] [place] [address] 02/15/2025 HAM WALTER PLAN OF TREATMENT No Information
--- OUTSIDE RECORDS SUMMARY | 2025-02-18 06:09 | XMS_ITS ---
Author Organization [facility] Address [address], [place] [id number] Care Team Providers Care Noodle Maker Name Role Phone HAM WALTER Primary Care Provider [phone] REASON FOR VISIT (W/fee)MedRecReqTrs Encounters Encounter Location Date Provider Diagnosis [facility] [address] [place] [address] 02/18/2025 HAM WALTER PLAN OF TREATMENT No Information
--- OUTSIDE RECORDS SUMMARY | 2025-02-23 06:48 | XMS_ITS | Patient Health Record ---
Author Organization [facility] Address [address], [place] [id number] Care Team Providers Care Field Liability Generalist Name Role Phone HAM WALTER Primary Care Provider [phone] BRYCE JOAQUIN Unavailable [phone] KALPESH FAUST Unavailable [phone] ALLERGIES Allergen (clinical drug ingredient) Drug/Non Drug Allergy documented on EMR Reaction Allergy Type Onset Date Status fluticasone Fluticasone felt funny Drug Allergy Active REASON FOR REFERRAL Reason right heel pain with history spur. Increased pain eval and treat Diagnosis 1 Pain of right heel ( M79.671) Referral Organization [facility] Referring Provider First Name KALPESH Referring Provider Last Name GOVIND Referring Provider Speciality Internal M edicine Referred Provider SHANNA CRUZ Referred Provider Specialty MECHANICAL ENGINEERING LECTURER General Notes Franny ASIF 02/26/2024 04:08:16 PM > fwd to YEFRI Garay Lisa K Referrals 03/17/2024 12:55:47 PM > medical referral and notes have been faxed to Dr. Cruz at [phone], Tanisha ASIF Referrals 03/24/2024 12:04:53 PM > called office, spoke with Luz Elena, no referral on file, medical referral and notes have been refaxed to [phone] Natalie G [place] 10/25/2024 02:24:05 PM > Called Dr. Cruz office pt cancelled new pt appt that was scheduled for 06/2024 fwd to GOVIND Palomares PATRICK 10/26/2024 08:09:37 AM > noted Referral Priority Routine Reason please call and cons ult dr jarrell thompson for dx rlq pain for 2 years with abnormal appendix on ct Referral Organization [facility] As gayle Referring Provider First Name HAM [...] referral approved and faxed to Lyndsay at [phone] Referral Priority Routine Reason Z03.89 Referral Organization [facility] [employer] Referring Provider First Name HAM Referring Provider Last Name WALTER Referring Provider Speciality Internal edicine Referred Provider ALVARO MARIN Referred Provider Specialty Ophthalmolog y General Notes Tanisha ASIF Referrals 08/25/2024 03:37:46 PM > referral request received from [facility], referral approved and faxed to [phone] Referral Priority Routine Referral Appointment Date 08/25/2024 Reason please refer to [facility] general surgery for post appendectomy RLQ pain Referral Organization [facility] As [employer] Referring Provider First Name HAM Referring Provider [...] 10 years Section Notes: Former smoker. Former smoker quit age 27, s moked age 21-25 socially Former smoker. Former smoker. Former smoker quit age 27, s moked age 21-25 socially Former smoker. Former smoker. Former smoker. Former smoker. 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) Active confirmed 89533990 Problem Hypogonadism in male (E29.1) Active confirmed 25644488 Problem Throat congestion (R68.89) Active confirmed 527290942 Problem Varicocele (I86.1) Active confirmed 510 13302 Problem New daily persistent headache (G44.52) Active confirmed 734020197 Problem Irritable bowel syndrome with both constipation and diarrhea (K58.2) Active confirmed 20796386 VITAL SIGNS Blood pressure diastolic 76 mm Hg 12/10/2024 Height 71 in 12/10/2024 Blood pressure systolic 122 mm Hg 12/10/2024 Weight 204 lbs 12/10/2024 BMI 28.45 kg/m2 12/10/2024 Encounters Encounter Location Date Provider Diagnosis [facility] [address] [place] [address] 02/26/2024 KALPESH FAUST Abdominal pain, unspecified abdominal location R10.9 and Pain of right heel M79.[address] [address] 02/27/2024 HAM WALTER Abdominal pain, unspecified abdominal location R10.[address] [address] 02/27/2024 HAM WALTER [address] [address] 03/28/2024 HAM WALTER [address] [address] 03/29/2024 HAM WALTER RLQ abdominal pain R10.[address] [address] 03/31/2024 HAM WALTER [address] [address] 04/16/2024 HAM WALTER [address] [address] 04/19/[address] [address] 04/21/[address] [address] 04/29/2024 HAM [facility] [address] [address] 05/04/2024 KALPESH FAUST [address] [address] 05/07/2024 [facility] discharge follow-up Z09 ; Appendicitis, unspecified appendicitis type K37 and Pruritic rash L28.[address] [address] 05/07/[address] [address] 05/07/2024 KALPESH FAUST [address] [address] 12/10/2024 HAM WALTER [facility] [address] [place] [address] 12/10/2024 HAM [facility] abdominal pain R10.31 [facility] [address] [place] [address] 12/10/2024 HAM WALTER [facility] [address] [place] [address] 12/10/2024 HAM WALTER [facility] [address] [place] [address] 12/13/2024 HAM WALTER [facility] [address] [place] [address] 01/14/2025 HAM WALTER [facility] [address] [place] [address], [place] [address] 01/18/2025 HAM WALTER [facility] [address] [place] [address], [place] [address] 01/20/2025 HAM WALTER [facility] [address] [place] [address], [place] [address] 01/20/2025 HAM WALTER [facility] [address] [place] [address], [place] [address] 01/20/2025 HAM [facility] [address] [place] [address], [place] [address] 01/21/2025 HAM WALTER [facility] [address] [place] [address], [place] [address] 01/24/2025 HAM WALTER [facility] [address] [place] [address] 01/24/2025 HAM WALTER [facility] [address] [place] [address] [facility]/24[facility] [address] [place] [address] 02/09/20[facility] [address] [place] [address] 02/14/2025 HAM WALTER [facility] [address] [place] [address] 02/15/2025 HAM [facility] [address] [place] [address] 02/18/2025 HAMTERR[facility] Encounter Date Diagnosis Assessment Notes Treatment [...] Dr. Hill if continuing issues. Follow-up with department secretary as scheduled. 03/29/2024 RLQ abdominal pain (ICD-10 [...] CLOSTRIDIUM DIFFICILE TOXIN/GDH W/REFL T O PCR (26188) 05/07/2022 Insurance Providers Payer Name Payer Address Payer Phone Subscriber Number Group Number Insured Name Patient Relationship to Insured Coverage Start Date Coverage End Date [place] [employer] [address] [place] [phone] [id number] ORLANDO RODRIGUEZ Self - patient is the insured 4 MEDICAL (GENERAL) HISTORY Medical History History ICD Code OA R fingers Elevated fasting glucose of 102 03/14 Sleep Study 04/18: ERIKA Colon05/16/17nl ..2022..NL...due 2032 IBS Surgical History Surgery Date(Month/Year) L Inguinal Hernia - Dr Ritter in [place]
[2025-02-23 11:07] LABS: Leukocytes Stool Qualitative NEGATIVE (NEGATIVE)
[2025-02-23 11:17] LABS: CDiff Gene PCR NEGATIVE (Negative)
[2025-02-24 05:23] LABS: E. coli EAEC Not Detected (Not Detect.); E. coli EPEC Not Detected (Not Detect.); E. coli ETEC Not Detected (Not Detect.); E. coli STEC Not Detected (Not Detect.); Shigella sp./EIEC Not Detected (Not Detect.)
== END 2025-02-23 05:54 | disposition home or self-care (01) ==
LOC: HO.HMGCLNP 05:53
PROVIDERS: PCP Physician Assistant Medical; Visit Provider Physician Assistant Medical
DX: R19.8 Other specified symptoms and signs involving the digestive system and abdomen (principal); R10.9 Unspecified abdominal pain; K59.00 Constipation, unspecified
CPT/HCPCS: 83986; 87015; 87177; 87207; 87209; 87329; 87338; 87493; 87507; 89055

== ENCOUNTER 2025-04-20 09:47 | Outpatient (REF) | payer OTHER, SELFPAY ==
--- NOTE | ~2025-04-20 | US_ITS ---
CLINICAL HISTORY: K59.00 - Constipation, unspecified US abdomen complete. COMPARISON: None provided. Technique: Real time sonographic imaging, including color-flow imaging, was performed by the rug setter velvet. Multiple parts representative static images were saved for review. FINDINGS: The visualized aorta and inferior vena cava are normal caliber. The visualized portions of the pancreas appear normal. The liver has diffusely increased echogenicity. Two adjacent hepatic cysts versus hepatic cyst with internal septation measuring in total 0.7 x 1.2 x 1.0 cm. Liver, right lobe size: 12.8 cm, normal. The gallbladder is contracted. No cholelithiasis or sludge identified. There is a negative sonographic Pride's sign. Gallbladder wall: 4-5 mm, thickened Common bile duct: 5 mm, within normal limits Right kidney: Cortical medullary differentiation is maintained. Normal color flow by Doppler. No calculus or focal parenchymal abnormality identified. No hydronephrosis. Right kidney length: 11.1 cm Left kidney: Cortical medullary differentiation is maintained. Normal color flow by Doppler. Lobulation along the lateral aspect of the left kidney internal increased hyperechogenicity possibly representing adjacent perirenal fat measuring 2.7 x 2.2 x 1.6 cm. No internal vascularity identified within this region. No hydronephrosis. Left kidney length: 9.5 cm The spleen has normal echogenicity. Splenic length: 10.5 cm, normal. No free intraperitoneal fluid identified. No free intraperitoneal fluid identified. IMPRESSION: 1. Gallbladder wall thickening. Nonspecific finding can be associated with hepatic dysfunction, right heart failure or cholecystitis. No additional evidence for cholecystitis. 2. Hepatic steatosis. 3. Focal lobulation along the lateral aspect of the left kidney measuring up to 2.7 cm. This may represent renal scarring with protrusion of the perirenal fat in this region. No internal vascularity identified. Recommend short-term follow-up imaging or CT or MR renal protocol for further characterization. 4. Mildly complex hepatic cyst with internal septation measuring 1.2 cm versus 2 adjacent hepatic cysts. This document has been electronically signed by: Mario Roberts MD on 04/20/2025 17:33:43
== END 2025-04-20 09:48 ==
LOC: HO.HMGCX 09:47
PROVIDERS: PCP Physician Assistant Medical; Visit Provider Physician Assistant Medical
DX: R10.84 Generalized abdominal pain (principal); K59.00 Constipation, unspecified
CPT/HCPCS: 76700

== ENCOUNTER → 2025-04-20 10:08 | Outpatient (BNV) | payer OTHER, SELFPAY | PROVIDERS: PCP Physician Assistant Medical; Visit Provider Radiology Diagnostic Radiology | DX: K76.0 Fatty (change of) liver, not elsewhere classified (principal); K76.89 Other specified diseases of liver; K82.8 Other specified diseases of gallbladder | CPT/HCPCS: 76700 ==

== ENCOUNTER 2025-04-27 09:54 | Outpatient (REF) | payer OTHER, SELFPAY | END 2025-04-27 09:55 | disposition home or self-care (01) | LOC: HO.LAB 09:54 | PROVIDERS: PCP Physician Assistant Medical; Visit Provider Nurse Practitioner Family | DX: R31.29 Other microscopic hematuria (principal); N39.43 Post-void dribbling | CPT/HCPCS: 51798; 81003; 88112 ==

== ENCOUNTER 2025-04-27 09:54 | Outpatient (AMB) | payer OTHER, SELFPAY ==
--- OUTSIDE RECORDS SUMMARY | 2024-12-13 04:00 | XMS_ITS ---
Author Organization [facility] Address [address] [place] [address] Care Team Providers Care Livestock Laborer Name Role Phone HAM GOODWIN Primary Care Provider REASON FOR VISIT 27/CPX Encounters Encounter Location Date Provider Diagnosis [address] [address] 12/13/2024 HAM GOODWIN Plan Of Treatment No Information Progress Notes * ORLANDO RODRIGUEZ SDOB: [birth year] (60 yo M)Acc No.[id number]:12/13/2024 Progress Notes Patient: Yg FUENTESORLANDO CHERY Marsha Provider: Martha Goodwin MD :[id number] A ge:59 Y S ex:Male Date:12/13/2024 Address:[id number] Subjective: * Chief Complaints: * 2 7/CPX * Electronic signature of INESSA GOODWIN M.D. on 04/27/2025 at 10:00 AM EST Sign off status: Pending * Provider: Martha Goodwin MD Date: 0 12/13/2024 Generated for Isai johnson/Katerine/Shantelleitting on: 06/28/2024 10:00 AM EST
--- NOTE | 2025-04-27 09:57 | MHC.OFFVIS ---
Intake Visit Reasons: microscopic hematuria/UA/PVR Intake Note: Patient is present for MICROSCOPICE HEMATURIA/PVR/UA Urology Medication:NONE Antibiotic Allergy:NONE Blood Thinner:NONE TODAY'S PVR:20ML'S [employer] Required: No Allergies No Known Allergies Allergy (Verified 04/27/25 10:51) Medication List - Last Reconciled 04/27/25 by MARS Núñez-DAVID Bifidobacterium combo no.9 (Adult 50 Plus Probiotic Kimberley) cells PO docusate sodium (Colace) 100 mg PO BID 90 days fexofenadine-pseudoephedrine 60-120 mg ER (Yee-D 12 Hour) 1 tab PO Q12H PRN hydrocortisone 2.5% 1 appl topical BID-TID PRN peg 3350-electrolytes 236-22.74-6.74 -5.86 gram (Golytely) 240 mL PO Q10M polyethylene glycol 3350 (Miralax) 17 grams PO BID HPI Comments Details: Julio is a very pleasant 60-year-old male patient of Dr. Larson. He has a past medical history of hyperlipidemia, positional vertigo, eczema, tinnitus, IBS, constipation, and microscopic hematuria. In discussion with the patient today he reports having followed up with his PCP for an annual visit at which time he was noted to have microscopic hematuria and recommendations were made for urology referral for further assessment evaluation. In office urinalysis results today noted no microscopic hematuria. He denies any previous history of smoking and or workplace chemical exposure. When asked he does report urinary dribbling he otherwise denies urinary urgency, urinary frequency, incontinence, nocturia, hematuria, dysuria, foul smelling urine, changes to urinary stream, flank pain, fever, and or chills. He is happy with her current voiding parameters. He does report being told he had an enlarged prostate in the past. We did review most recent abdominal ultrasound that patient has completed as he has been having ongoing issues with his bowels. 04/28 Focal lobulation along the lateral aspect of the left kidney. This may represent scarring per radiology report. In review of patient's chart it does appear PSA has been ordered and performed. These results were reviewed and communicated with the patient today. PSA 02/26 1.5. We did discussed potential causes of intermittent microscopic hematuria we also discussed urinary dribbling. He discusses upcoming appointment with gastroenterology within the next month. All questions were answered. He otherwise offers no other issues or concerns at this time. [facility] Medical History (Updated 04/27/25 @ 10:42 by MONICA Núñez) Abnormal ultrasound of kidney (~04/2025) Hematuria Hyperlipidemia LDL goal <100 Postnasal drip BPPV (benign paroxysmal positional vertigo) Eczema Tinnitus IBS (irritable bowel syndrome) Diffuse abdominal pain Annual physical exam Constipation Right sided abdominal pain History of appendicitis Surgical History History of appendectomy Family History Father Congestive heart failure Diabetes Mother History of kidney cancer Social History Housing: House Patient Tobacco Use Status: Never used Tobacco e-Cigarette/Vaping Use: Never Used service: No Current occupational status: employed Cognitive needs: No Hearing needs: No Vision needs: Yes (reading glasses) Review of Systems Const All systems reviewed & are unremarkable except as noted in HPI and below Physical Exam Const General: cooperative, healthy appearing, comfortable, no acute distress, well developed, alert and awake Orientation/consciousness: patient oriented x3 Limitations: no limitations HEENT Head: Yes normal to inspection, Yes normocephalic and Yes atraumatic Ears: hearing grossly normal bilaterally Eyes General: appearance normal, both eyes and all related structures Neck Neck: Yes normal visual inspection and Yes trachea midline Chest Chest palpation & inspection: normal inspection of the chest Resp Effort & Inspection: normal respiratory effort and able to speak in complete sentences Cardio Rate: regular rate GI Inspection: Yes normal to inspection General: Yes no CVA tenderness Back/Spine/Pelvis Back: no CVA tenderness Skin General skin exam: no rashes or lesions noted Neuro General: patient oriented x3 Extrem General: Yes normal to inspection Psych Appearance: grossly normal and well kempt Mental Status: mental status grossly normal Speech and movement: Normal speech and movement present and Clear speech present Affect: normal affect Attitude: cooperative Thought process: Normal thought process present Thought content: Normal thought content present Insight: Fair insight present (Psych) Judgement: Fair judgement present (Psych) Office Procedures Post Void Residual Post Residual Void Post Void Residual (PVR): 20 [id number] Void Residual by ultrasound Results AMB Urinalysis, Automated UA Leukoctes 0 Marianna/uL Last Edit by ROLAND Boyd on 04/27/25 10:12 UA Nitrite Negative Last Edit [facility] 04/27/25 10:12 UA Urobilinogen 0.2 mg/dL Last Edit by Osei Naylor [facility] on 04/27/25 10:12 UA Protein 15 mg/dL Last Edit by Osei Naylor [facility] on 04/27/25 10:12 UA pH 6.0 Last Edit by Osei Naylor [facility] on 04/27/25 10:12 UA Blood 0 Uriel/uL Last Edit [facility] on 04/27/25 10:12 UA Specific [place] 1.025 Last Edit by Osei Naylor [facility] on 04/27/25 10:12 UA Ketone Negative Last Edit [facility] on 04/27/25 10:12 UA Bilirubin 0 mg/dL Last Edit by Osei Naylor [facility] on 04/27/25 10:12 UA Glucose 0 mg/dL Last Edit by Osei Naylor [facility] on 04/27/25 10:12 Results Reviewed Results Reviewed: Laboratory Last Values Urine pH (Auto) 6.0 04/27/25 10:10 Specific [place] (Auto) 1.025 04/27/25 10:10 Urine Protein (Auto) 15 mg/dL 04/27/25 10:10 Glucose (UA)(Auto) 0 mg/dL 04/27/25 10:10 Urine Ketones (Auto) Negative 04/27/25 10:10 Urine Blood (Auto) 0 Uriel/uL 04/27/25 10:10 Urine Nitrite (Auto) Negative 04/27/25 10:10 Urine Bilirubin (Auto) 0 mg/dL 04/27/25 10:10 Urine Urobilinogen (Auto) 0.2 mg/dL 04/27/25 10:10 Leukocyte Esterase (Auto) 0 Marianna/uL 04/27/25 10:10 Date of Service: 04/20/25 Procedure(s): US abdomen complete FINDINGS: The visualized aorta and inferior vena cava are normal caliber. The visualized portions of the pancreas appear normal. The liver has diffusely increased echogenicity. Two adjacent hepatic cysts versus hepatic cyst with internal septation measuring in total 0.7 x 1.2 x 1.0 cm. Liver, right lobe size: 12.8 cm, normal. The gallbladder is contracted. No cholelithiasis or sludge identified. There is a negative sonographic Pride's sign. Gallbladder wall: 4-5 mm, thickened Common bile duct: 5 mm, within normal limits Right kidney: Cortical medullary differentiation is maintained. Normal color flow by Doppler. No calculus or focal parenchymal abnormality identified. No hydronephrosis. Right kidney length: 11.1 cm Left kidney: Cortical medullary differentiation is maintained. Normal color flow by Doppler. Lobulation along the lateral aspect of the left kidney internal increased hyperechogenicity possibly representing adjacent perirenal fat measuring 2.7 x 2.2 x 1.6 cm. No internal vascularity identified within this region. No hydronephrosis. Left kidney length: 9.5 cm The spleen has normal echogenicity. Splenic length: 10.5 cm, normal. No free intraperitoneal fluid identified. No free intraperitoneal fluid identified. IMPRESSION: 1. Gallbladder wall thickening. Nonspecific finding can be associated with hepatic dysfunction, right heart failure or cholecystitis. No additional evidence for cholecystitis. 2. Hepatic steatosis. 3. Focal lobulation along the lateral aspect of the left kidney measuring up to 2.7 cm. This may represent renal scarring with protrusion of the perirenal fat in this region. No internal vascularity identified. Recommend short-term follow-up imaging or CT or MR renal protocol for further characterization. 4. Mildly complex hepatic cyst with internal septation measuring 1.2 cm versus 2 adjacent hepatic cysts. Assessment & Plan Assessment & Plan (1) Microhematuria: Code(s): R31.29 - Other microscopic hematuria Category: Medical (2) Urinary dribbling: Code(s): N39.43 - Post-void dribbling Category: Medical Plan In office urinalysis results with the patient today; as noted above. We did discussed at length potential causes of microscopic hematuria; we discussed persistent microscopic hematuria verses gross hematuria verses intermittent microscopic hematuria; we did discussed further treatment options and risks and benefits of these treatment options. Information provided regarding pelvic floor exercises to assist with urinary dribbling. He reports be happy with current voiding parameters. He currently denies any bothersome urinary issues or concerns. Most recent abdominal ultrasound results reviewed with the patient today; as noted above. Recent PSA results reviewed with the patient today; as noted above. All questions were answered. Will obtain PSA and retroperitoneal ultrasound in 6 months. Follow-up in 6 months with imaging, labs, and PVR; or sooner with any issues, concerns, and or questions. Orders: Orders AMB Urinalysis Automated Today Z13.9 - Encounter for screening, unspecified Urine Cytology Today R31.29 - Other microscopic hematuria Patient Instructions: The patient had an opportunity to ask questions regarding the treatment plan. All questions were answered. Physical exam, labs, and imaging were discussed and reviewed in detail. As well as risks, benefits, and discussion of treatment choices. No major barriers to understanding were identified. The patient expressed understanding and agreement with the above treatment plan. The patient was made aware they should contact our office by phone for worsening of their current condition, the appearance of new symptoms, or with any questions or concerns. Compliance is encouraged with any medications and follow up testing that is ordered. It is a privilege to be allowed the opportunity to participate in? your urological care.? Again, if you have any questions or concerns If you have any questions or concerns please do not hesitate to contact me. The office is [phone]. This note is constructed using voice recognition software. While every effort has been made to ensure accuracy international account representative errors may have been included. Yours sincerely, MONICA Núñez Coding Level of Care Code New Pt Level 3 (83610) Diagnoses Microhematuria R31.29 Urinary dribbling N39.43 CPT Codes Post Residual Void - PVR CPT Code: 06147-Ohjw Void Residual by ultrasound ([id number])
--- OUTSIDE RECORDS SUMMARY | 2025-04-27 10:01 | XMS_ITS | Patient Health Record ---
Author Organization [facility] Address [address] [place] [address] Care Team Providers Care Photographer Still Name Role Phone HAM WALTER Primary Care Provider BRYCE JOAQUIN Unavailable [phone] KALPESH FAUST Unavailable [phone] Allergies Allergen (clinical drug ingredient) Drug/Non Drug Allergy documented on EMR Reaction Allergy Type Onset Date Status fluticasone Fluticasone felt funny Drug Allergy Active Reason For Referral Reason Z03.89 Referral Organization [facility] gayle Referring Provider First Name HAM Referring Provider Last Name WALTER Referring Provider Speciality Internal M edicine Referred Provider ALVARO MARIN Referred Provider Specialty Ophthalmolog y General Notes Tanisha ASIF Referrals 08/25/2024 03:37:46 PM > referral request received from [facility], referral approved and faxed to [phone] Referral Priority Routine Referral Appointment Date 08/25/2024 Reason please refer to [facility] general surgery for post appendectomy RLQ pain Referral Organization [facility] gayle Referring Provider First Name HAM Referring Provider Last Name WALTER Referring Provider Speciality Internal M edicine General Notes Ivana ASIF MA 12:05:58 PM > please refer to [facility] general surgery for post appendectomy RLQ pain, Referral Priority Routine Medications Medication SIG (Take, Route, Frequency, Duration) Notes Start Date End Date Status Probiotic - Tablet Delayed Release 1 tablet Orally once a day Active Multivitamin - Tablet 1 tablet Orally On ce a day Active Immunizations Vaccine Route Administration Date Status Comme nts Tdap (Adacel)11-64,State Supplied IM Intramuscular 03/13/2010 Administered Pfizer COVID-19,mRNA, LNP-S, PF, 30mcg/0.3mL dose Unknown 08/02/2020 Administered Pfizer COVID-19,mRNA, LNP-S, PF, 30mcg/0.3mL dose Unknown 08/26/2020 Administered Moderna COVID-19 mRNA LNP-S PF IM Intramuscular 05/06/2021 Administered Social History Tobacco Use: Social History Observation Description Date Details (start date - stop date) Former Smoker NA - NA Social History Tobacco Use: Social Info Question Answer Notes Smoking Are you a: former smoker How long has it been since you last smoked? 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 Former smoker. Former smoker. Former smoker. Former smoker quit age 27, s moked age [age] socially Former smoker quit age 27, s moked age [age] socially Former smoker. Former smoker. Former smoker. Former smoker quit age 27, s moked age [age] socially Problems Problem Type SNOMED Code ICD Code Onset Dates Problem Status W/U Status Risk Notes Problem Snoring (23162392) Snoring (R06.83) Active confirmed Problem Obstructive sleep apnea syndrome (88124011) ERIKA (obstructive sleep apnea) (G47.33) Active confirmed Problem Bilateral tinnitus (2636132195226) Tinnitus of both ears (H93.13) Active confirmed Problem Tinnitus of right ear (6815868303895) Tinnitus of right ear (H93.11) Active confirmed Problem Cervical disc disease (115031635) Cervical disc disease (M50.90) Active confirmed Problem Localized, primary osteoarthritis of the hand (505229341) 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) Active confirmed Problem Male hypogonadism (09005623) Hypogonadism in male (E29.1) Active confirmed Problem Symptom: generalized (062799550) Throat congestion (R68.89) Active confirmed Problem Varicocele (02859182) Varicocele (I86.1) Active confirmed Problem New daily persistent headache (755283287950810) New daily persistent headache (G44.52) Active confirmed Problem Irritable bowel syndrome (18268763) Irritable bowel syndrome with both constipation and diarrhea (K58.2) Active confirmed Vital Signs Blood pressure diastolic 76 mm Hg 12/10/2024 Height 71 in 12/10/2024 Blood pressure systolic 122 mm Hg 12/10/2024 Weight 204 lbs 12/10/2024 BMI 28.45 kg/m2 12/10/2024 Encounters Encounter Location Date Provider Diagnosis [place] [phone] 12/10/2024 [facility] abdominal pain R10.31 [place] [id number] 05/07/2024 [facility] discharge follow-up Z09 ; Appendicitis, unspecified appendicitis type K37 and Pruritic rash L28.2 [place] [id number] 02/18/2025 [place] [id number] 01/24/2025 [facility] [place] [id number] 02/14/[address] [id number] 02/09/[address] [id number] 01/14/[address] [id number] 12/10/[address] [id number] 12/10/[address] [address] 12/10/[address] [address] 05/07/[address] [place] [id number] 05/04/2024 KALPESH FAUST [address] [place] [id number] 04/29/[address] [place] [id number] 01/24/[address] [place] [id number] 01/24/[address] [place] [id number] 01/21/[address] [place] [id number] 01/20/[address] [place] [id number] 01/20/[address] [place] [id number] 01/20/[address] [place] [id number] 01/18/2025 [facility] Assessments Encounter Date Diagnosis (ICD Code) Assessment Notes Treatment Notes Treatment Clinical Notes Section Notes 05/07/2024 Hospital discharge follow-up (ICD-10 - Z09) [...] surgeon; call to schedule appt with Dr Garcia, diet as tolerated. 12/10/2024 RLQ abdominal pain (ICD-10 - R10.31) reviewed prior eval..will check abs and ct..trial activated charcoal 05/07/2024 Pruritic rash (ICD-10 - L28.2) eucerin and hydrotcortisone as needed to abdomen; call if worsening 05/07/2024 Other I am seeing the patient under the supervision of the co-signing physician. The physician was available for consultation at the time of the office visit. Plan Of Treatment Pending Test Test Name Order Date CT Abdomen & Pelvis with Oral and IV con trast 02/26/2024 CT Abdomen & Pelvis with Oral and IV con trast 12/10/2024 Lyme Ab(BRL/QUEST) 09/10/2016 CBC W/OUT AUTOMATED DIFF 06/22/2021 URINALYSIS WITH REFLEX MICROSCOPIC 06/22 SHBG(Sex Hormone Binding Globulin) 10/02 URINE CULTURE 05/02/2022 Future Test Test Name Order Date CBC W/ AUTOMATED DIFF 05/07/2022 COMP. METABOLIC 05/07/2022 GIARDIA LAMBLIA ANTIGEN, EIA(Stool) 07/2022 Stool for O and P x 3 samples 05/07/2022 CLOSTRIDIUM DIFFICILE TOXIN/GDH W/REFL T O PCR (22749) 05/07/2022 Insurance Providers Payer Name Payer Address Payer Phone Subscriber Number Group Number Insured Name Patient Relationship to Insured Coverage Start Date Coverage End Date [employer] [address] [place] [phone] [id number] [place]O RODRIGUEZ Self - patient is the insured 4 Medical (General) History Medical History History ICD Code OA R fingers Elevated fasting glucose of 102 03/14 Sleep Study 04/18: ERIKA Colon/04/21nl ..2022..NL...due 2032 IBS Surgical History Surgery Date(Month/Year) L Inguinal Hernia - Dr Ritter in [place]
== END 2025-04-27 10:52 | disposition home or self-care (01) ==
LOC: HO.HUSH 09:54
PROVIDERS: PCP Physician Assistant Medical; Visit Provider Nurse Practitioner Family
DX: R31.29 Other microscopic hematuria (principal); N39.43 Post-void dribbling; Z13.9 Encounter for screening, unspecified
CPT/HCPCS: 99203